=== PATIENT | female | born 1980 | race Caucasian/White ===

== ENCOUNTER → 2017-04-30 | Outpatient (CLI) | payer BC | LOC: FIMAGING 15:50 | DX: N18.3 Chronic kidney disease, stage 3 (moderate) (principal); R31.29 Other microscopic hematuria; I10 Essential (primary) hypertension; S37.012D Minor contusion of left kidney, subsequent encounter ==

== ENCOUNTER → 2018-06-23 | Outpatient (CLI) | payer BC | LOC: BMCIMAGING 10:54 | PROVIDERS: ATTEND Internal Medicine | DX: R05 Cough (principal) ==